=== PATIENT | male | born 1975 | race Caucasian/White ===

== ENCOUNTER 2017-04-12 11:59 | Emergency (ER) | payer MEDICARE ==
[2017-04-12 12:19] VITALS: O2SAT 99
[2017-04-12] MEDS ORDERED: Norflex 60 MG/2 ML IM ONE (12:36)
[2017-04-12] MEDS ORDERED: NORCO 5/325 MG PO ONE (12:36)
[2017-04-12] MEDS ORDERED: NORCO 5/325 MG ONE (12:40)
[2017-04-12] MEDS ORDERED: Norflex 60 MG/2 ML ONE (12:40)
--- NOTE | 2017-04-12 12:49 | ERPHSYRPT ---
- History of Present Illness Time Seen by Provider: 04/12/17 12:28 Source: patient, family (mother) Patient Subjective Stated Complaint: PT REPORTS LOW BACK PAIN AFTER USING [place] 4 DAYS AGO-DENIES NUMBNESS OR TINGLING TO LEGS-DENIES INJURY Triage Nursing Assessment: PT PINK WARM ET DRY-AMBULATORY TO ED-NO OBVIOUS SIGNS OF INJURY Physician History: CC: back pain Hx; 41 y/o patient of Dr West. He has hx of DM uncontrolled. He rode a riding mower last weekend and has low back pain since. No fever or chills. No prior pain. Normal urination. No abd pain. Sugars up and down as per his normal. No N/ T/W. No hx of CA. Pain moderately severe. Not better with inez back and body tablets at home. Timing/Duration: day(s) (5) Allergies/Adverse Reactions: Penicillins Allergy (Intermediate, Verified 04/12/17 12:19) Hives Home Medications: Insulin Lispro [Humalog] 0 unit SQ UD 12/10/13 [History] Omeprazole 20 MG [Prilosec 20 mg] 20 mg PO DAILY 12/10/13 [History] Hx Tetanus, Diphtheria Vaccination/Date Given: No Hx Influenza Vaccination/Date Given: No Hx Pneumococcal Vaccination/Date Given: No Immunizations Up to Date: Yes - Review of Systems Constitutional: No Fever, No Chills Eyes: No Symptoms Ears, Nose, & Throat: No Symptoms Respiratory: No Cough, No Dyspnea Cardiac: No Chest Pain Abdominal/Gastrointestinal: No Abdominal Pain, No Nausea, No Vomiting Genitourinary Symptoms: No Dysuria, No Incontinence Musculoskeletal: Back Pain, No Neck Pain, No Fall Skin: No Rash Neurological: No Focal Weakness, No Headache, No Parasthesia All Other Systems: Reviewed and Negative - Past Medical History Pertinent Past Medical History: Yes Neurological History: Peripheral Neuropathy ENT History: No Pertinent History Cardiac History: Hypertension Respiratory History: No Pertinent History Endocrine Medical History: Diabetes Type I Musculoskeletal History: No Pertinent History GI Medical History: No Pertinent History History: No Pertinent History Psycho-Social History: No Pertinent History Male Reproductive Disorders: No Pertinent History - Past Surgical History Past Surgical History: Yes Neuro Surgical History: No Pertinent History Cardiac: No Pertinent History Gastrointestinal: No Pertinent History Genitourinary: No Pertinent History Musculoskeletal: Orthopedic Surgery Male Surgical History: No Pertinent History - Social History Smoking Status: Current every day smoker How long have you smoked: YRS Exposure to second hand smoke: No Drug Use: none 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) - Nursing Vital Signs Nursing Vital Signs: Initial Vital Signs Temperature 98.3 F 04/12/17 12:19 Pulse Rate 83 04/12/17 12:19 Respiratory Rate 20 04/12/17 12:19 Blood Pressure 118/96 04/12/17 12:19 O2 Sat by Pulse Oximetry 99 04/12/17 12:19 Pain Scale Pain Intensity 7 - Physical Exam General Appearance: alert Ears, Nose, Throat Exam: normal ENT inspection, moist mucous membranes Neck Exam: normal inspection, non-tender, supple Respiratory Exam: normal breath sounds Cardiovascular Exam: regular rate/rhythm Gastrointestinal Exam: soft, No tenderness, No distention Male Genetalia Exam: normal genitalia Back Exam: vertebral tenderness (low back moreso on right paraspinous area) Extremity Exam: normal inspection, normal range of motion Neurologic Exam: alert, oriented x 3, cooperative, sensation nml, other (1+ equal bilateral patellar MSR's), No motor deficits Skin Exam: warm, dry SpO2 Interpretation: normal SpO2: 99 Oxygen Delivery: Room Air - Course Nursing assessment & vital signs reviewed: Yes - Radiology Exams lumbar X-ray Interpretation: Teleradiologist Report, Negative Ordered Tests: Active Orders 24 hr Category Date Time Status LUMBAR COMPLETE (MIN 4 VIEWS) Stat Exams 04/12/17 12:36 Completed Medication Summary Discontinued Medications Generic Name Dose Route Start Last Admin Trade Name Silvestre PRN Reason Stop Dose Admin Hydrocodone Bitart/Acetaminophen 1 tab 04/12/17 12:36 04/12/17 12:42 [place] 5/325 Mg PO 04/12/17 12:37 1 tab STAT ONE Administration Hydrocodone Bitart/Acetaminophen Confirm 04/12/17 12:40 [place] 5/325 Mg Administered 04/12/17 12:41 Dose 1 tab .ROUTE .STK-MED ONE Orphenadrine Citrate 60 mg 04/12/17 12:36 04/12/17 12:42 Norflex 60 Mg/2 Ml IM 04/12/17 12:37 60 mg STAT ONE Administration Orphenadrine Citrate Confirm 04/12/17 12:40 Norflex 60 Mg/2 Ml Administered 04/12/17 12:41 Dose 60 mg .ROUTE .STK-MED ONE - Progress Progress Note: 04/12/17 13:41 Xray negative. Will avoid NSAIDS as he has diabetes. Instr given. Counseled pt/family regarding: diagnosis, need for follow-up, rad results - Departure Time of Disposition: 13:41 Departure Disposition: Home Clinical Impression: Lumbar sprain Condition: Stable Critical Care Time: No Referrals: LATESHA WEST MD [Primary Care Provider] - Instructions: Low Back Pain Additional Instructions: BACK INJURY 1. May apply moist heat frequently for relief of pain. Take care not to burn the skin. Do not use heat for more than 30 minutes at a time. 2. Try to sleep on a firm bed, flat on your back. 3. If no improvement is noticed in 2-3 days, follow up with your family physician. 4. If you notice any numbness, tingling, weakness, or problems with your bowel or bladder, you should call your family physician or return to the emergency department. No driving today or while taking norflex and norco. Rx norflex. Rx norco. Follow up next week with Dr West. Prescriptions: Hydrocodone Bit/Acetaminophen [[place] 5-325 Tablet] 1 each PO Q6H PRN PRN #15 tablet PRN Reason: Pain Orphenadrine Citrate 100 mg [Norflex 100 MG Tablet] 1 tab PO BID #10 tab
--- NOTE | 2017-04-12 13:05 | XRAY ---
Indication: Low back pain. No known injury. Comparison: None 5 views of the lumbar spine demonstrates normal alignment with disc spaces preserved and tiny L3/L4 anterior endplate spurring. No acute fracture, subluxation, or pars interarticularis defect. Incidental moderate diffuse scattered colonic fecal debris.
[2017-04-12 13:06] VITALS: BP 130/83; PULSE 78
== END 2017-04-12 13:54 | disposition home or self-care (01) ==
LOC: ED 11:59
DX: S33.5XXA Sprain of ligaments of lumbar spine, initial encounter (principal); X50.0XXA Overexertion from strenuous movement or load, initial encounter; W28.XXXA Contact with powered lawn mower, initial encounter
CPT/HCPCS: 72110; 96372; 99284; J2360; A9270-GY